=== PATIENT | female | born 1975 | race African-American/Black ===

== ENCOUNTER 2016-12-05 08:17 | Emergency (ER) | payer OTHER, BC ==
--- NOTE | 2016-12-05 09:31 | ER Document Report ---
HPI - HPI Patient complains to provider of: low back pain Onset: Other - 8-24-17 Onset/Duration: Sudden, Persistent Pain Level: 5 Context: 41 yo morbidly obese female has exacerbation of low back pain friday when getting out of recliner. Originally injured at work after being given very heavy (unexpected ) box of equipement then twisting to the left, trying to hold onto contents falling out of bottom then dropping bent forward onto pallett which broke. sent to ortho from work which tx with meloxicam and limited duty - sitting. Now worse, tearful, worried. went back to ortho which "vebally tx her badly" he is sending to physical tx, and possible future MRI. No saddle anesthesiam, radiculopathy, IV drug use, or fever. No uti sx. Associated Symptoms: None Exacerbated by: Sitting, Movement Relieved by: Denies Similar symptoms previously: Yes Recently seen / treated by doctor: Yes - ROS ROS below otherwise negative: Yes Systems Reviewed and Negative: Yes All other systems reviewed and negative - REPRODUCTIVE LMP: hyster Reproductive: DENIES: : - DERM Skin Color: Normal Past Medical History - General Information source: Patient - Social History Smoking Status: Never Smoker Frequency of alcohol use: None Drug Abuse: None Lives with: Family Family History: Reviewed & Not Pertinent Patient has suicidal ideation: No Patient has homicidal ideation: No - Past Medical History Cardiac Medical History: Reports: Hx Hypertension Neurological Medical History: Reports: Hx Cerebrovascular Accident - left foot Endocrine Medical History: Reports: Hx Hypothyroidism Renal/ Medical History: Denies: Hx Peritoneal Dialysis Musculoskeltal Medical History: Reports Hx Arthritis, Reports Hx Musculoskeletal Trauma Past Surgical History: Reports: Hx Section - x2, Hx Hysterectomy, Hx Orthopedic Surgery - left foot, Hx Thyroid Surgery - removal. Denies: Hx Mastectomy, Hx Open Heart Surgery, Hx Pacemaker - Immunizations Immunizations up to date: Yes Hx Diphtheria, Pertussis, Tetanus Vaccination: Yes Vertical Provider Document - CONSTITUTIONAL Agree With Documented VS: Yes Exam Limitations: No Limitations General Appearance: Mild Distress - INFECTION CONTROL TRAVEL OUTSIDE OF THE [place] IN LAST 30 DAYS: No - HEENT HEENT: Normocephalic - NECK Neck: Supple - RESPIRATORY Respiratory: Breath Sounds Normal, No Respiratory Distress - CARDIOVASCULAR Cardiovascular: Regular Rate, Regular Rhythm - GI/ABDOMEN Gastrointestinal: Abdomen Soft, Abdomen Non-Tender - BACK Back: Normal Inspection - MUSCULOSKELETAL/EXTREMETIES Musculoskeletal/Extremeties: MAEW, FROM, Tender - lumbar muscles Notes: exagerated lordosis due to abdominal obesity - NEURO Level of Consciousness: Awake, Alert Motor/Sensory: No Motor Deficit, No Sensory Deficit Deep Tendon Reflexes: 2+ - [place] ankle and patellar - DERM Integumentary: Warm, Dry, No Rash Discharge - Discharge Clinical Impression: Low back strain Qualifiers: Encounter type: initial encounter Qualified Code(s): S39.012A - Strain of muscle, fascia and tendon of lower back, initial encounter Condition: Good Disposition: HOME, SELF-CARE Instructions: Acetaminophen, Low Back Pain ([facility]), Muscle Relaxers ([facility]), Muscle Strain ([facility]), Warm Packs ([facility]) Additional Instructions: warm compress see the physical therapy as reccomended see the work comp orthopedic doctor as planned to er if any worsening of the symptoms Please complete the patient satisfaction survey if you get one, and return it.. If you do not receive a survey, then you can go to the [facility] website, [email or web address] and place your comments about your very good care. Thank you very much. It was a pleasure being your medical provider today. Prescriptions: Cyclobenzaprine HCl [Flexeril 10 Mg Tablet] 10 mg PO TIDP PRN #30 tablet PRN Reason: Forms: Return to Work
[2016-12-05] MEDS ORDERED: ACETAMINOPHEN 325 MG TABLET PO ONE (09:32)
[2016-12-05 10:06] VITALS: BP 152/97
== END 2016-12-05 10:00 | disposition home or self-care (01) ==
LOC: ER 08:17
DX: S39.012A Strain of muscle, fascia and tendon of lower back, initial encounter (principal); M54.5 Low back pain; X58.XXXA Exposure to other specified factors, initial encounter
CPT/HCPCS: 99283

== ENCOUNTER 2017-03-20 08:06 | Emergency (ER) | payer OTHER, BC ==
[2017-03-20] MEDS ORDERED: HYDROMORPHONE HCL INJ/PF 2 MG/ML AMPULE IV ONE (09:51)
[2017-03-20] MEDS ORDERED: ONDANSETRON HCL INJ/PF 4 MG/2 ML SDV IV ONE (09:51)
[2017-03-20 10:56] LABS: ABSOLUTE LYMPHOCYTES (AUTO) 0.9 10^3/uL (0.5-4.7); ABSOLUTE MONOCYTES (AUTO) 0.6 10^3/uL (0.1-1.4); ABSOLUTE NEUT (AUTO) 6.7 10^3/uL (1.7-8.2); BASOPHILS % (AUTO) 0.4 % (0-2); EOSINOPHILS % (AUTO) 0.3 % (0-6); HEMATOCRIT 38.8 % (36.0-47.0); HEMOGLOBIN 13.3 g/dL (12.0-15.5); HGB HCT DIFFERENCE 1.1; LYMPHOCYTES % (AUTO) 10.8 % (13-45); MEAN CORPUSCULAR HEMOGLOBIN 29.6 pg (27.0-33.4); MEAN CORPUSCULAR HGB CONC 34.2 g/dL (32.0-36.0); MEAN CORPUSCULAR VOLUME 87 fl (80-97); MONOCYTES % (AUTO) 7.3 % (3-13); RED BLOOD COUNT 4.48 10^6/uL (3.72-5.28); RED CELL DISTRIBUTION WIDTH 13.5 % (11.5-14.0); SEGMENTED NEUTROPHILS % (AUTO) 81.2 % (42-78); WHITE BLOOD COUNT 8.3 10^3/uL (4.0-10.5)
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
[2017-03-20 11:09] LABS: ALANINE AMINOTRANSFERASE 36 U/L (9-52); ALBUMIN 4.5 g/dL (3.5-5.0); ALKALINE PHOSPHATASE 113 U/L (38-126); ANION GAP 12 (5-19); ASPARTATE AMINO TRANSFERASE 25 U/L (14-36); BILIRUBIN,DIRECT 0.3 mg/dL (0.0-0.4); BILIRUBIN,TOTAL 0.5 mg/dL (0.2-1.3); BLOOD UREA NITROGEN 14 mg/dL (7-20); CALCIUM 9.3 mg/dL (8.4-10.2); CARBON DIOXIDE 27 mmol/L (22-30); CHLORIDE 101 mmol/L (98-107); CREATININE RESULT 0.82 mg/dL (0.52-1.25); GLUCOSE 105 mg/dL (75-110); SODIUM 139.9 mmol/L (137-145)
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
[2017-03-20 13:46] VITALS: BP 153/105
== END 2017-03-20 14:18 | disposition home or self-care (01) ==
LOC: ER 08:06
DX: S62.319A Displaced fracture of base of unspecified metacarpal bone, initial encounter for closed fracture (principal); S62.342A Nondisplaced fracture of base of third metacarpal bone, right hand, initial encounter for closed fracture; S62.346A Nondisplaced fracture of base of fifth metacarpal bone, right hand, initial encounter for closed fracture; S00.03XA Contusion of scalp, initial encounter; V49.40XA Driver injured in collision with unspecified motor vehicles in traffic accident, initial encounter; M54.2 Cervicalgia; M79.641 Pain in right hand; M25.531 Pain in right wrist; I10 Essential (primary) hypertension; Z88.0 Allergy status to penicillin
CPT/HCPCS: 99285; 96374; 96375; 36415; 84703; 85025; 80053; 73110; 70450; 71260; 72125; 74177; 29125; L0120; J1170; J2405